=== PATIENT | female | born 1995 | race Caucasian/White ===

== ENCOUNTER 2024-07-13 11:00 | Inpatient (IN) | payer OTHER ==
[2024-07-13] MEDS: LACTATED RINGERS SOLUTION 500 ML IV ONE (11:05)
[2024-07-13 11:32] VITALS: BMI 31.6
[2024-07-13] MEDS: LACTATED RINGERS SOLUTION 1,000 ML IV SCH (11:35)
[2024-07-13 11:52] LABS: BASO % 0.3 % (0-2.0); EOS % 0.1 % (0-4.5); HEMATOCRIT 38.4 % (32.4-45.2); HEMOGLOBIN 13.2 GM/dL (10.7-15.3); LYMPH % 16.2 % (8-40); MCH 30.2 pg (25.7-33.7); MCHC 34.3 g/dl (32.0-36.0); MEAN PLT VOLUME 7.5 fl (7.5-11.1); NEUT % 68.4 % (42.8-82.8); PLATELET COUNT 196 10^3/uL (134-434); RBC 4.36 M/mm3 (3.60-5.2); RDW 13.9 % (11.6-15.6); WHITE BLOOD COUNT 6.1 K/mm3 (4.0-10.0)
[2024-07-13 11:56] LABS: INR 0.92 (0.83-1.09); PROTHROMBIN TIME (PATIENT) 10.6 SEC (9.7-13.0)
[2024-07-13 11:59] LABS: ACTIVATED PTT 25.6 SECONDS (25.2-36.5)
[2024-07-13 12:13] LABS: POTASSIUM 3.7 mmol/L (3.5-5.1)
[2024-07-13 12:14] LABS: CALCIUM 8.8 mg/dL (8.5-10.1)
[2024-07-13 12:15] LABS: BLOOD UREA NITROGEN 8.1 mg/dL (7-18)
[2024-07-13 12:18] LABS: CREATININE 0.6 mg/dL (0.55-1.3)
[2024-07-13] MEDS ORDERED: FENTANYL/BUPIVACAINE/NS/PF - PCEA - 50 ML DISP.SYRIN EP ONE ×3 (12:26→21:05)
[2024-07-13] MEDS: FENTANYL/BUPIVACAINE/NS/PF - PCEA - 50 ML DISP.SYRIN EP SCH (12:55)
[2024-07-13] MEDS ORDERED: NALOXONE HCL 0.4 MG/ML VIAL IVPUSH PRN (13:20)
[2024-07-13 15:19] LABS: SYPHILIS W/ RPR CONF NON-REACTIVE (NONREACTIVE)
[2024-07-13 15:48] LABS: HIV INTERPRETATION NEGATIVE (NEGATIVE)
[2024-07-13] MEDS ORDERED: OXYTOCIN 20 UNITS in 0.9% NS 20 UNIT/1,000 ML INFUS.BAG IV ONE (23:12)
[2024-07-13] MEDS ORDERED: OXYTOCIN 30 UNITS in 0.9% NS 30 UNIT/500 ML INFUS.BAG IVPB ONE (23:20)
[2024-07-13] MEDS: OXYTOCIN 30 UNITS in 0.9% NS 30 UNIT/500 ML INFUS.BAG IVPB SCH (23:20)
[2024-07-14] MEDS ORDERED: BISACODYL 10 MG SUPP.RECT RC PRN (00:15)
[2024-07-14] MEDS: OXYTOCIN 20 UNITS in 0.9% NS 20 UNIT/1,000 ML INFUS.BAG IV SCH (00:15)
[2024-07-14] MEDS ORDERED: METHYLERGONOVINE MALEATE 0.2 MG/1 ML AMP IM PRN (00:15)
[2024-07-14] MEDS ORDERED: WITCH HAZEL 50% (TUCKS) 40 PAD/JAR PAD TP PRN (00:15)
[2024-07-14] MEDS ORDERED: BENZOCAINE 28 GM HEMORRHOIDAL OINTMENT TP PRN (00:15)
[2024-07-14] MEDS: IBUPROFEN 600 MG TABLET (FP) PO PRN (00:45)
[2024-07-14] MEDS: BENZOCAINE 20% 57 GM BOTTLE TP PRN (02:15)
[2024-07-14 02:27] VITALS: RESP 18
[2024-07-14] MEDS: PRENATAL VITAMINS W/ FOLIC ACID TABLET (FP) PO SCH (09:32)
[2024-07-14] MEDS: ACETAMINOPHEN 325 MG TABLET (FP) PO PRN (09:32)
[2024-07-15 08:25] LABS: BASO % 0.9 % (0-2.0); EOS % 1.8 % (0-4.5); HEMATOCRIT 27.4 % (32.4-45.2); HEMOGLOBIN 8.8 GM/dL (10.7-15.3); MCH 29.5 pg (25.7-33.7); MCHC 32.2 g/dl (32.0-36.0); MEAN CELL VOLUME 91.6 fl (80-96); MEAN PLT VOLUME 7.8 fl (7.5-11.1); MONO % 18.6 % (3.8-10.2); NEUT % 49.7 % (42.8-82.8); PLATELET COUNT 193 10^3/uL (134-434); RBC 2.99 M/mm3 (3.60-5.2); RDW 14.2 % (11.6-15.6); WHITE BLOOD COUNT 6.7 K/mm3 (4.0-10.0)
[2024-07-15 09:07] VITALS: BP 109/67; PULSE 76; TEMP 98.6
[2024-07-15] MEDS ORDERED: SENNOSIDES/DOCUSATE COMBO (SENNA PLUS) TABLET (UD) PO PRN (22:00)
== END 2024-07-15 13:10 | disposition home or self-care (01) | DRG 807 ==
LOC: JLDR 11:00 → J3W 07-14 02:09
PROVIDERS: ADMIT Obstetrics & Gynecology; ATTEND Obstetrics & Gynecology
PROC: 10E0XZZ Delivery of Products of Conception, External Approach (ICD-10-PCS; principal; 2024-07-13)
PROC: 0KQM0ZZ Repair Perineum Muscle, Open Approach (ICD-10-PCS; 2024-07-13)
PROC: 0W8NXZZ Division of Female Perineum, External Approach (ICD-10-PCS; 2024-07-13)
DX: O70.1 Second degree perineal laceration during delivery (principal); Z37.0 Single live birth; Z3A.39 39 weeks gestation of pregnancy
CPT/HCPCS: 36415; 59409; 80048; 85025; 85610; 85730; 86780; 86850; 86900; 86901; 87389